=== PATIENT | female | born 1985 | race Caucasian/White ===

== ENCOUNTER 2025-02-18 01:02 | Day surgery (SDC) | payer BC, SELFPAY ==
[2025-02-07 11:01] VITALS: BMI 30.2
--- NOTE | 2025-02-07 11:10 | PC.NURSE ---
Report to the Outpatient Waiting Room, entrance under the green pavilion located off [facility], at time ___1215____ on date ___02/18/25____. Planned Procedure Time: ____1315____.? Time changes happen often and if your time is changed the preop area will call you the afternoon before. - You and your visitor will be asked to self-screen and do not enter if you have any COVID symptoms. Please call surgeon if you need to reschedule. - A mask is optional within the hospital at this time. 1. It is alright to eat a light breafast/lunch prior to procedure depending on schedule time. Do not eat or drink anything other than scheduled medications with small amounts of clear liquid (water) for two hours prior to procedure. 2. Take a bath/shower the evening before and morning of procedure. 3. Please take your scheduled medications, especially blood pressure and diabetes medications as prescribed, with small sips of water prior to procedure. You may also take your prescribed pain medicaitons as needed. 4. Patient is not allowed to drive 24 hours after procedure. Follow office instructions from [facility] document for anticoagulant medication instructions - Jewelry must be removed prior to entering the operating room.? Rings and piercings that are not removed may be cut off. - The hospital will not accept responsibility for valuables.? - Please leave all valuables, including medications, at home the day of surgery. Follow any additional instructions given to you from your surgeon. Telephone instructions given to ___Fay Mckinnon __and asked if any additional questions and then verbalized understanding. Patient advised to call surgeon office or pre surgery nurse liaison [phone] if any additional questions.
--- NOTE | ~2025-02-18 | XR_ITS ---
XR fluoroscopy no charge Indication: Bilateral hypogastric plexus block TECHNIQUE: Fluoroscopy used during Bilateral hypogastric plexus block performed by [Rey voss MD] on 02/18/2025 . 1 minute 53 seconds of fluoroscopy time with 11 fluoroscopic images captured . FINDINGS: Correlate with procedure note. IMPRESSION: Fluoroscopy used during Bilateral hypogastric plexus block. Reviewed, dictated and finalized at location A.
--- OUTSIDE RECORDS SUMMARY | 2025-02-18 01:05 | XMS_ITS | Encounter Summary ---
Author Organization [facility] Address [address] [place] [id number] Care Team Providers Care Coal Sample Tester Name Role Phone Dell Early MD Primary Care Provider Gennaro Dasilva MD Primary Care Provider [phone] Altaf Hernandez MD Primary Care Provider [phone] Encounter Details Date Type Department Care Team (Late st Contact Info) Description 02/18/2021 Tavern Message Enc [facility] [address], [address] [place] [address] [place], [facility] [address] [place] [address] [place] [address] Visit Follow Up Social History Tobacco Use Types Packs/Day Years Used Date Smoking Tobacco: Never Smokeless Tobacco: Never Alcohol Use Standard Drinks/Week Comments Yes 0 (1 standard drink = 0.6 oz pur e alcohol) glass a wine monthly AUDIT-C Answer Date Recorded Frequency of Alcohol Consumption Monthly or less 10/29/2019 Average Number of Drinks Not on file 020 Frequency of Binge Drinking Not on file 10/17 Comments No Sex and Gender Information Value Date Recorded Sex Assigned at Female 10/29/2019 10:33 AM SALES REPRESENTATIVE GRAPHIC ART Legal Sex Female 4:52 PM CDT Gender Identity Female 10/29/2019 10:33 AM SALES REPRESENTATIVE GRAPHIC ART Sexual Orientation Not on file COVID-19 Exposure Response Date Recorded In the last month, have you been in contact with someone who was confirmed or suspected to have Coronavirus / COVID-19? No / Unsure 02/18/2021 8:31 AM CDT documented as of this encounter Plan of Treatment Not on file documented as of this encounter Visit Diagnoses Not on filedocumented in this encounter Additional Health Concerns Infection Onset Date Last Indicated Resolved Time COVID-19 Rule Out 06/30/2021 06/30/2021 06/30/2021 7:31 PM CDT COVID-19 Rule Out 01/19/2022 01/19/2022 01/19/2022 8:22 PM CDT documented as of this encounter Care Teams Coal Sample Tester Relationship Specialty Start Date End Date Dell Early MD [address] [place] [phone] PCP - [facility] PRACT[facility] 10/16/19 12/09/22 Gennaro Dasilva MD [address] [place] [phone] PCP - General FAMILY PRACTICE 12/10/22 11/26/23 Altaf Hernandez MD [address] [place] [phone] PCP - [facility] PRACT[facility] 11/27/23 documented as of this encounter
--- OUTSIDE RECORDS SUMMARY | 2025-02-18 01:05 | XMS_ITS | Encounter Summary ---
Author Organization [facility] Address [facility] [place] [address] Care Team Providers Care Message And Delivery Service Pricer Name Role Phone None, Provider Primary Care Provider Dell Heck MD Primary Care Provider Gennaro Dasilva MD Primary Care Provider [phone] Altaf Hernandez MD Primary Care Provider [phone] Encounter Details Date Type Department Care Team (Late st Contact Info) Description 03/24/2019 Abstract [facility] CONVERSION [address] [place] [address] , Generic Conversion, Social History Tobacco Use Types Packs/Day Years Used Date Smoking Tobacco: Never Assessed Comments Unknown Sex and Gender Information Value Date Recorded Sex Assigned at Female 10/29/2019 10:33 AM BOTTLE BOOTH ATTENDANT Legal Sex Female 4:52 PM CDT Gender Identity Female 10/29/2019 10:33 AM BOTTLE BOOTH ATTENDANT Sexual Orientation Not on file documented as of this encounter Plan of Treatment Not on file documented as of this encounter Visit Diagnoses Not on filedocumented in this encounter Additional Health Concerns Infection Onset Date Last Indicated Resolved Time COVID-19 Rule Out 11/04/2020 11/04/2020 11/05/2020 6:22 PM BOTTLE BOOTH ATTENDANT COVID-19 Rule Out 06/30/2021 06/30/2021 06/30/2021 7:31 PM CDT COVID-19 Rule Out 01/19/2022 01/19/2022 01/19/2022 8:22 PM CDT documented as of this encounter Care Teams Message And Delivery Service Pricer Relationship Specialty Start Date End Date None, Provider, PCP - General 07/11/19 10/15/19 Dell Early MD [address] [place] [phone] PCP - [facility] FAMILY PRACT[facility] 10/16/19 12/09/22 Gennaro Dasilva MD [address] [place] [phone] PCP - General FAMILY PRACTICE 12/10/22 11/26/23 Altaf Hernandez MD [address] [place] [phone] PCP - [facility] PRACTICE 11/27/23 documented as of this encounter
--- OUTSIDE RECORDS SUMMARY | 2025-02-18 01:05 | XMS_ITS | Encounter Summary ---
Author Organization [facility] Address Pending sale to [facility] [place] [address] Care Team Providers Care Treasury Management Sales Consultant Name Role Phone Dell Early MD Primary Care Provider [phone] Gennaro Dasilva MD Primary Care Provider [phone] Altaf Hernandez MD Primary Care Provider [phone] Encounter Details Date Type Department Care Team (Late st Contact Info) Description 02/19/2021 [facility] Patient Accounts [address] [place] [address] [facility] Financial Assistance application Social History Tobacco Use Types Packs/Day Years [...] Sex Assigned at Female 10/29/2019 10:33 AM LAST PICKER Legal Sex Female 4:52 PM CDT Gender Identity Female 10/29/2019 10:33 AM LAST PICKER Sexual Orientation Not on file COVID-19 Exposure [...] documented as of this encounter Care Teams Treasury Management Sales Consultant Relationship Specialty Start Date End Date Dell Early MD [address] [place] [phone] PCP - General FAMILY PRACTICE 10/16/19 12/09/22 Gennaro Dasilva MD [address] [place] [phone] PCP - General FAMILY PRACTICE 12/10/22 11/26/23 Altaf Hernandez MD [address] [place] [phone] PCP - General FAMILY PRACTICE 11/27/23 documented as of this encounter
--- OUTSIDE RECORDS SUMMARY | 2025-02-18 01:05 | XMS_ITS | Encounter Summary ---
Author Organization [facility] Address [facility] [place] [address] Care Team Providers Care Newspaper Library Manager Name Role Phone None, Provider Primary Care Provider Dell Heck MD Primary Care Provider Gennaro Dasilva MD Primary Care Provider [phone] Altaf Hernandez MD Primary Care Provider [phone] Encounter Details Date Type Department Care Team (Late st Contact Info) Description 12/31/2017 Abstract [facility] CONVERSION [address] [place] [address] , Generic Conversion, Social History Tobacco Use Types Packs/Day Years Used Date Smoking Tobacco: Never Assessed Comments Unknown Sex and Gender Information Value Date Recorded Sex Assigned at Female 10/29/2019 10:33 AM INTERVENTIONAL PHYSIATRIST Legal Sex Female 4:52 PM CDT Gender Identity Female 10/29/2019 10:33 AM INTERVENTIONAL PHYSIATRIST Sexual Orientation Not on file documented as of this encounter Plan of Treatment Not on file documented as of this encounter Visit Diagnoses Not on filedocumented in this encounter Additional Health Concerns Infection Onset Date Last Indicated Resolved Time COVID-19 Rule Out 11/04/2020 11/04/2020 11/05/2020 6:22 PM INTERVENTIONAL PHYSIATRIST COVID-19 Rule Out 06/30/2021 06/30/2021 06/30/2021 7:31 PM CDT COVID-19 Rule Out 01/19/2022 01/19/2022 01/19/2022 8:22 PM CDT documented as of this encounter Care Teams Newspaper Library Manager Relationship Specialty Start Date End Date None, Provider, PCP - General 07/11/19 10/15/19 Dell Early MD [address] [place] [phone] PCP - General FAMILY PRACTICE 10/16/19 12/09/22 Gennaro Dasilva MD [address] [place] [phone] PCP - General FAMILY PRACTICE 12/10/22 11/26/23 Altaf Hernandez MD [address] [place] [phone] PCP - [facility] 11/27/23 documented as of this encounter
--- OUTSIDE RECORDS SUMMARY | 2025-02-18 01:05 | XMS_ITS | Encounter Summary ---
Author Organization [facility] Address Formerly [facility] [place] [address] Care Team Providers Care Instructor Modeling Name Role Phone Dell Early MD Primary Care Provider [phone] Gennaro Dasilva MD Primary Care Provider [phone] Altaf Hernandez MD Primary Care Provider [phone] Encounter Details Date Type Department Care Team (Late st Contact Info) Description 07/07/2022 [facility] Patient Accounts [address] [place] [address] [facility] Provider Auto Pay Payment Plan Social History Tobacco Use Types Packs/Day Years [...] Sex Assigned at Female 10/29/2019 10:33 AM CORE STRIPPER Legal Sex Female 4:52 PM CDT Gender Identity Female 10/29/2019 10:33 AM CORE STRIPPER Sexual Orientation Not on file COVID-19 Exposure Response Date Recorded In the last 10 days, have yo u been in contact with someone who was confirmed or suspected to have Coronavirus/COVID-19? No / Unsure 07/09/2022 1:01 PM CDT documented as of this encounter Functional Status * Calculated C-SSRS Risk Score (Lifetime/Recent) Answer Date of Assessment Author Status No Risk Indicated 07/09/2022 1:10 PM Javi Kraft RN Active * [place] Suicide Severity Rating Scale (Screener/Recent Self-Report) Question Answer Date of Assessment Author Status 1. Wish to be (Past 1 Month) No 07/09/2022 1:10 PM Javi Kraft, RN Activ e 2. Non-Specific Active Suicidal Thoughts (Past 1 Month) No 07/09/2022 1:10 PM Javi Kraft, RN Activ e 6. Suicidal Behavior (Lifetime) No 07/09/2022 1:10 PM Javi Kraft, RN Activ e documented as of this encounter Plan of Treatment Not on file documented as of this encounter Visit Diagnoses Not on filedocumented in this encounter Care Teams Instructor Modeling Relationship Specialty Start Date End Date Dell Early MD [address] [place] [phone] PCP - General FAMILY PRACTICE 10/16/19 12/09/22 Gennaro Dasilva MD [address] [place] [phone] PCP - General FAMILY PRACTICE 12/10/22 11/26/23 Altaf Hernandez MD [address] [place] [phone] PCP - General FAMILY PRACTICE 11/27/23 documented as of this encounter
--- OUTSIDE RECORDS SUMMARY | 2025-02-18 01:05 | XMS_ITS | Clinical Summary ---
Author Organization [facility] Address [facility] [place] [address] Care Team Providers Care Scheduler Conveyor Name Role Phone Altaf Hernandez MD Primary Care Provider [phone] Allergies Active Allergy Reactions Criticality Noted Date Comments Mite (D. Farinae) Shortness of Breath,Runny Nose High 10/29/2019 Sulfa Antibiotics Hives,Itching,Swelling High 2013 Medications PROAIR HFA 108 (90 Base) MCG/ACT inhaler Inhale 2 puffs into the lungs every 4 (four) hours as needed. 3 06/07/2019 Active EPINEPHrine 0.3 MG/0.3ML injection INJECT DIRECTED PRN 2 06/07/2019 Active FLOVENT HFA 44 MCG/ACT inhaler Inhale 2 puffs into the lungs 2 (two) times a day. 07/27/2020 Active ondansetron (ZOFRAN) 4 MG tablet Take 1 tablet (4 mg total) by mouth every 8 (eight) hours as needed for Nausea. 16 tablet 11/12/2024 Active Active Problems Problem Noted Date Diagnosed Date Sprain of other ligament of left ankle, sequela 06/08/2022 Cervical radiculopathy 01/18/2022 Sprain of anterior talofibul ar ligament of left ankle, subsequent encounter 02/18/2021 Status post laparoscopic cholecystectomy 021 Helicobacter pylori (H. pylori) infection 2019 Chronic gastritis 11/19/2019 Diarrhea 10/30/2019 Overview (10/30/2019): Added automatically from request for surgery [id number] Hepatic steatosis 10/29/2019 Nausea 10/29/2019 Chronic epigastric pain 01/08/2014 Resolved Problems Problem Noted Date Diagnosed Date Resolved Date Unspecified abdominal pain 10/02/2020 1 12/03/2019 Biliary dyskinesia 10/29/2019 1 Trigger point of right shoulder region 09/14/2018 10/29/2019 Postoperative examination 03/12/2014 Encounter for preventive health examination 05/16/2013 10/29/2019 Family History Medical History Relation Comments No Known Problems Brother Asthma Father COPD Father Diabetes Mother No Known Problems Sister 1 No Known Problems Sister 2 Relation Status Comments Brother Alive Father Alive Mother Alive Sister 1 Alive Sister 2 Alive Social History Tobacco Use Types Packs/Day Years Used Date Smoking Tobacco: Never Smokeless Tobacco: Never Alcohol Use Standard Drinks/Week Comments Not Currently 0 (1 standard drink = 0.6 oz pur e alcohol) glass a wine monthly AUDIT-C Answer Date Recorded Frequency of Alcohol Consumption Monthly or less 10/29/2019 Average Number of Drinks Not on file 020 Frequency of Binge Drinking Not on file 10/17 Comments No Sex and Gender Information Value Date Recorded Sex Assigned at Female 10/29/2019 10:33 AM VENEER STAPLER Legal Sex Female 4:52 PM CDT Gender Identity Female 10/29/2019 10:33 AM VENEER STAPLER Sexual Orientation Not on file Last Filed Vital Signs Vital Sign Reading Time Taken Comments Blood Pressure 116/76 11/12/2024 7:00 PM VENEER STAPLER Pulse 83 11/12/2024 7:00 PM VENEER STAPLER Temperature 36.7 C (98 F) 11/12/2024 5:06 PM VENEER STAPLER Respiratory Rate 18 11/12/2024 7:00 PM VENEER STAPLER Oxygen Saturation 100% 11/12/2024 7:00 PM VENEER STAPLER Inhaled Oxygen Concentration - - Weight 78.5 kg (173 lb) 11/12/2024 5:06 PM VENEER STAPLER Height 157.5 cm (5' 2 ) 11/12/2024 5:06 PM VENEER STAPLER Body Mass Index 31.64 11/12/2024 5:06 PM VENEER STAPLER Plan of Treatment Health Maintenance Due Date Last Done Comments Annual Physical 1988 Hepatitis C 2003 COVID-19 Vaccine ( season) 2024 DTaP, Tdap and Td Vaccines (8 - Td or Tdap) 02/22/2026 02/23/2016, 11/14/2013, 02/08/2001, Additional history exists Hepatitis B Vaccines Completed 03/05/1997, 10/02/1996, 07/09/1996 HPV Vaccines Aged Out No longer eligi ble based on patient's age to complete this topic Meningococcal B Vaccine Aged Out No l onger eligible based on patient's age to complete this topic Meningococcal Vaccine Aged Out No rodney norris eligible based on patient's age to complete this topic Pneumococcal Vaccine: Pediatrics (0 to 5 Years) and At-Risk Patients (6 to 49 Years) Aged Out No longer eligible based on patient's age to complete this topic RSV Immunizations Under 20 Months Aged Out No longer eligible based on patient's age to complete this topic Insurance [facility] Care Teams Scheduler Conveyor Relationship Specialty Start Date End Date Altaf Hernandez MD [address] [facility] [address] [place] [phone] PCP - General FAMILY PRACTICE 11/27/23
--- NOTE | 2025-02-18 11:42 | PM.HPGS ---
History of Present Illness History of Present Illness Consent: Risks, benefits, and alternatives have been discussed and questions answered. Patient agrees to proceed with procedure. Chief complaint: pelvic and perineal pain Narrative: Fay Soares is a 39 year old female with chronic, recalcitrant and disabling bilateral pelvic and perineal pain secondary to visceral hyperalgesia with failure to respond to aggressive conservative measures including PT, oral and topical analgesics, opioid and nonopioid analgesics, rest, time and activity/behavioral modification over the past 1-2 years who presents for diagnostic/prognostic and therapeutic block of the hypogastric plexus under fluoroscopic guidance and with contrast control. Review of Systems Review of Systems: Patient denies any new infectious, allergic, cardiopulmonary, neurologic or constitutional symptoms or changes in activity tolerance or exercise capacity including new or progressive SOB/HANCOCK, peripheral edema, productive cough, dysuria, nausea/vomiting, diarrhea, weight change, fevers/chills/night sweats, new or progressive neurologic deficit, cognitive or mood changes since last seen, except as documented in the HPI. All systems reviewed & are unremarkable except as noted in HPI and below PMFSH Past Medical History Medical History (Updated 01/25/25 @ 18:36 by Rey Gotti MD) Headache disorder GERD (gastroesophageal reflux disease) Asthma Allergies Surgical History Surgical History (Updated 01/14/25 @ 14:10 by Delaney Cespedes MA) History of 3 sections History of hernia surgery Family History Family History (Updated 01/14/25 @ 14:11 by Delaney Cespedes MA) Father Asthma Mother Diabetes mellitus Thyroid disorder Grandparent Diabetes mellitus Asthma Social History Social History Smoking status: Never smoker Living arrangements: with family Meds Home Medications and Allergies Home Medications ?Medication ?Instructions ?Recorded ?Confirmed ?Type atogepant 60 mg tablet (Qulipta) 60 mg PO DAILY 01/14/25 02/07/25 History cetirizine 10 mg chewable tablet 10 mg PO DAILY 01/14/25 02/07/25 History famotidine 20 mg tablet 20 mg PO DAILY 01/14/25 02/07/25 History fluticasone 100 mcg-salmeterol 50 1 inh inhalation PRN PRN PRN 01/14/25 02/07/25 History mcg/dose blistr powdr for inhalation hydrocodone 5 mg-acetaminophen 325 1 tablet PO .prn 01/14/25 02/07/25 History mg tablet methocarbamol 500 mg tablet 500 mg PO PRN PRN PRN 01/14/25 02/07/25 History montelukast 10 mg tablet 10 mg PO QPM 01/14/25 02/07/25 History pantoprazole 40 mg tablet,delayed 40 mg PO DAILY 01/14/25 02/07/25 History release Allergies Allergy/AdvReac Type Severity Reaction Status Date / Time Sulfa (Sulfonamide Allergy Mild Hives Verified 02/07/25 10:59 Antibiotics) Exam Narrative: The patient's physical exam is essentially unchanged from prior examination on 01/14/2025. Specifically, patient demonstrates normal lung capacity, tidal volume and respiratory rate without wheezes, crackles, rales or rubs. Heart rate and rhythm are regular without murmurs, gallops or rubs. No JVD. Pulses 2+ globally without increasing peripheral edema. AAOx3 with no evidence of confusion, intoxication or altered mental state, NC/AT without acute distress or altered consciousness. Speech, cognition, mood, insight and judgment at baseline and within normal limits. Assessment and Plan Assessment and plan (1) Visceral hyperalgesia: Code(s): R19.8 - Other specified symptoms and signs involving the digestive system and abdomen Status: Acute Assessment and Plan: Proceed as planned with diagnostic/prognostic and therapeutic block of the hypogastric plexus under fluoroscopic guidance and with contrast control. (2) Chronic pelvic pain syndrome in female: Code(s): R10.2 - Pelvic and perineal pain; G89.29 - Other chronic pain Status: Acute
--- NOTE | 2025-02-18 11:45 | WPDHPUPDATE1 ---
History and Physical Update Update Date/Time: 02/18/25 11:45 History and Physical has been reviewed, including an updated exam of the patient. There are NO changes in the patient's condition. Risks, benefits, and alternatives have been discussed and questions answered. Patient agrees to proceed with procedure.
--- NOTE | 2025-02-18 11:46 | P.OP_ITS ---
Procedure Note - Detailed Date of Procedure 02/18/25 Pre-op Diagnosis pelvic and perineal pain Post-op Diagnosis Same Procedure Performed Bilateral Hypogastric Sympathetic Plexus Block under Fluoroscopic Guidance and with Contrast Control at L5. Surgeon Rey Gotti MD Anesthesia Local Description of Procedure INFORMED CONSENT: Risks, benefits and alternatives to the procedure were discussed in detail with the patient who expressed explicit understanding and consent to proceed. Patient was informed verbally and in written form regarding the risks associated with the procedure including the low risk of serious infection, bleeding/bruising, hypotension/cardiovascular collapse, allergic david ction, nerve or organ injury, paralysis, procedural site pain or discomfort, worsening pain and/or mobility, failure to treat and/or disfigurement. The patient expressed explicit understanding and consent to proceed. All materials required for the procedure were available prior to procedure start. Site and side was marked prior to procedure and confirmed in the presence of the patient. PROCEDURE IN DETAIL: The patient was brought to the procedural suite and placed in the prone position. Patient was made comfortable with use of pillows under the head/chest, hips and ankles. Skin overlying the injection site was prepared broadly with ChloraPrep applicator and draped in a sterile manner. Aseptic technique was employed throughout. The endplates of the L5 vertebral body at the site of interest were aligned in the AP view. Local anesthesia was established by infiltration with approximately 5 mL of 0.5% lidocaine via a 1-1/2 inch 27- gauge needle. An additional 5 ml of PF 0.5% lidocaine was delivered via a 22- gauge, 3.5 inch Quincke spinal needle to anesthetize the deeper tissues down to the lateral vertebral body, after negative aspiration. A 22-gauge 5-inch Quincke spinal needle was advanced medially and anteriorly until the needle tip contacted periosteum on the ipsilateral border of the vertebral body. Needle was repositioned until walking-off anteromedially and advancing until the needle tip was positioned 2-3 millimeters ventral to the anterior border of the L5 vertebral body in the lateral view. In the lateral view, 3 mL of Omnipaque 300 contrast medium was injected after negative aspiration for CSF, blood or other bodily fluid, showing appropriate linear spread in the ventrolateral prevertebral space without evidence of intravascular, intrathecal, epidural or foraminal spread of contrast. Appropriate amorphous spread of contrast was confirmed in the AP view. Digital subtraction imaging was used to confirm lack of intravascular spread in the AP view with an additional 3 ml of IV contrast. A 10mL solution containing 6 mg of betamethasone in 0.5% PF Bupivacaine was injected after negative repeat aspiration. Appropriate spread of the injectate was confirmed with washout of previously injected contrast. No parasthesias were elicited. Needle was removed completely intact without difficulty. The same procedure was repeated for all intended levels/structures on the contralateral side with identical methodology modified to compensate for contralateral location, with similar results and no evidence of complication. Patient tolerated this well. Images were saved and documented in the patient chart. Patient's skin was cleaned and sterile bandage applied. The patient tolerated the procedure well. The patient was transported to the recovery area in stable condition where they were observed for an appropriate amount of time prior to discharge, without evidence of complication. The patient was instructed to avoid excessive activity for the next 48 hours, including climbing and frequent use of stairs. Showers only for 48 hours. They were instructed not to drive or operate heavy machinery for 24 hours. They are to monitor for severe headaches, fevers, chills, night sweats, erythema/swelling at the site or any other signs of infection, bleeding/bruising, bowel or bladder changes as well as new pain, weakness or numbness in the upper or lower extremity. Should they notice these changes, they are instructed to call our office immediately or report directly to the nearest Emergency Department if no answer or if after posted office hours. CONTRAST WASTED: 8.0 mL Omnipaque 300. Complications No immediate complications Condition Stable Disposition PACU [facility] Billing Surgery - Charge Forward: Surgery Billing
[2025-02-18 13:17] VITALS: BMI 30.2
[2025-02-18 13:24] VITALS: BP 117/74; PULSE 69; TEMP 36.5; O2SAT 98
[2025-02-18 13:35] VITALS: BP 132/83; PULSE 76; RESP 14; O2SAT 99
[2025-02-18] MEDS: BUPivacaine HCL 0.5% PF 30 ML VIAL INFILTRATE (13:39)
[2025-02-18] MEDS: BETAMETHASONE SODIUM PHOSPHATE PF INJ 6 MG/ML VIAL INFILTRATE (13:40)
[2025-02-18 13:43] VITALS: BP 126/80; PULSE 80; RESP 14; O2SAT 100
[2025-02-18 13:48] VITALS: BP 130/73; PULSE 83; RESP 14; O2SAT 100
[2025-02-18] MEDS: LIDOCAINE 1% PF INJ 5 ML VIAL 10 ML INFILTRATE (13:55)
[2025-02-18 14:10] VITALS: BP 126/71; PULSE 66; RESP 16; O2SAT 100
== END 2025-02-18 14:20 | disposition home or self-care (01) ==
PROVIDERS: PCP Family Medicine; Visit Provider Anesthesiology Pain Medicine
PROC: (CPT 64517; principal; 2025-02-18 13:15)
DX: R19.8 Other specified symptoms and signs involving the digestive system and abdomen (principal); G89.29 Other chronic pain; K21.9 Gastro-esophageal reflux disease without esophagitis; J45.909 Unspecified asthma, uncomplicated; Z79.51 Long term (current) use of inhaled steroids; Z79.891 Long term (current) use of opiate analgesic; Z98.890 Other specified postprocedural states
CPT/HCPCS: 64517; 77003; 99199; J2003; Q9965